=== PATIENT | female | born 1960 | race Caucasian/White ===

== ENCOUNTER 2017-08-16 07:42 | Emergency (ER) | payer OTHER ==
--- NOTE | 2017-08-16 08:07 | PDOC ---
History of Present Illness - General Chief Complaint: Pain, Acute Stated Complaint: CONSTIPATED/PAIN History Source: Patient Exam Limitations: No Limitations - History of Present Illness Initial Comments: 08/16/17 08:11 Pt is a 56 yo F with PMHx of diverticulosis and significant PSHx for cholecystectomy, hemorrhoidectomy, bladder surgery, oophorectomy and hysterectomy, hand surgery post fall, presenting with persistent lower abdominal pain and constipation x 2weeks. Patient describes intermittent cramping 10/10 lower abdominal pain, radiating to back. Worse with ingestion of food, mildly relieved with ibuprofen. Pt has attempted to pass stools up to 4 -5 times this am, but it is hard and painful. No current hx of blood or mucus in stool, but pt noted one episode of bloody stool 2 weeks ago, for which she has been on metronidazole, prescribed by Dr Pandya. She stopped taking the metronidazole for lack of improvement about 2 days ago. The patient has had chronic constipation, with the abdominal pain for about a month. No change in diet, no hx of similar symptoms, no hx of sick contacts and no recent travel. Patient has had colonoscopy in the past. and follows Dr Pandya. Her primary Doctor is on [facility], 08/16/17 10:24 Timing/Duration: unsure Severity: mild Associated Symptoms: reports: nausea/vomiting (nausea but no vomiting). denies : chest pain, cough, diaphoresis, fever/chills, loss of appetite Past History - Travel Traveled outside of the country in the last 30 days: No Close contact w/someone who was outside of country & ill: No - Past Medical History Allergies/Adverse Reactions: Allergies Allergy/AdvReac Type Severity Reaction Status Date / Time No Known Allergies Allergy Verified 08/16/17 08:03 Home Medications: Ambulatory Orders Levofloxacin [Levaquin] 500 mg PO DAILY #9 tablet 08/16/17 Metronidazole 500 mg PO TID 10 Days #29 tablet 08/16/17 Naproxen 500 mg PO BID #5 tablet 08/16/17 metroNIDAZOLE [Flagyl -] 250 mg PO ASDIR 08/16/17 - Surgical History Abdominal Surgery: Yes (hysterectomy, oophorectomy, bladder surgery for prolapse ) Cholecystectomy: Yes Other Surgical History: 08/16/17 08:52 Hand surgery - Reproductive History LMP comment: s/p hysterectomy and oophorectomy Review of Systems - Review of Systems Able to Perform ROS?: Yes (Use [id number]) Is the patient limited Maltese proficient: Yes Constitutional: No: Chills, Diaphoresis, Fever, Loss of Appetite HEENTM: No: Nose Congestion, Throat Pain Respiratory: No: Cough, Orthopnea, Shortness of Breath, Stridor, Wheezing Cardiac (ROS): No: Chest Pain, Edema, Palpitations ABD/GI: Yes: Abd. Pain w/ defecation, Blood Streaked Bowels (One episode 2 weeks ago), Nausea, Abdominal cramping. No: Abdominal Distended, Poor Appetite , Poor Fluid Intake, Vomiting : Yes: Dysuria. No: Burning, Discharge, Hematuria, Incontinence, Urgency Musculoskeletal: No: Back Pain, Muscle Weakness Neurological: Yes: Dizziness. No: Headache, Numbness Hematologic/Lymphatic: No: Anemia, Blood Clots *Physical Exam - Physical Exam General Appearance: Yes: Mild Distress HEENT: positive: EOMI. negative: Scleral Icterus (L), Nasal Congestion Neck: positive: Supple. negative: Tender Respiratory/Chest: positive: Lungs Clear, Normal Breath Sounds. negative: Respiratory Distress, Labored Respiration Cardiovascular: positive: Regular Rate, S1, S2. negative: Edema Gastrointestinal/Abdominal: positive: Normal Bowel Sounds, Soft, Tenderness ( Suprapubic tenderness) Rectal Exam: positive: other (Good anal hygiene, no obvious stool or blood around the anal orifice. Tender anal orifice with mildly engorged perianal vessels, non bleeding. Scanty soft stool billy nal vault. Gloved finger with scant non mucoid, non bloody brown stool.) Musculoskeletal: negative: CVA Tenderness Extremity: positive: Normal Inspection Integumentary: positive: Dry, Warm Neurologic: positive: Fully Oriented, Alert, Motor Strength 5/5. negative: Facial Droop, Confused, Disoriented ED Treatment Course - LABORATORY CBC & Chemistry Diagram: 08/16/17 09:10 08/16/17 09:10 Medical Decision Making - Medical Decision Making 08/16/17 09:00 Chronic constipation and abdominal pain- hx of diverticulosis and hemorrhoids, digital rectal exam done and occult blood CBC, CMP, Lipase UA, Urine culture 08/16/17 10:[address] abdomen pelvis with PO and Iv contrast to R/o colitis 08/16/17 12:14 Pt noted to have allergy to iv contrast. Will do CT abd /pelvis without iv contrast Labs wnl 08/16/17 13:07 CT abd/pelvis- diffuse diverticulosis coli mainly in the sigmoid colon with thickening of the mid sigmoid wall that may be chronic. Mild stranding of surrounding fat suspicious for sumperimposed mild acute diverticulitis. No extravasation or abscess formation is identified. Clinically correlate. Plan: Will discharge home on Po levaquin 500mg daily x 10 days PO metronidazole 500mg tid x 10 days Naproxen 500mg PO bid x 5 days To follow up with Dr Pandya *DC/Admit/Observation/Transfer Diagnosis at time of Disposition: Diverticulitis, Diverticulitis large intestine - Discharge Dispostion Disposition: HOME Condition at time of disposition: Stable Admit: No - Prescriptions Prescriptions: Levofloxacin [Levaquin] 500 mg PO DAILY #9 tablet Metronidazole 500 mg PO TID 10 Days #29 tablet Naproxen 500 mg PO BID #5 tablet - Referrals Referrals: Sanchez Romero [Primary Care Provider] - 1 week Mitch Pandya MD [Staff Physician] - 1 week - Patient Instructions Printed Discharge Instructions: DI for Diverticulitis Additional Instructions: You were seen here for abdominal pain and constipation CT scan of your abdomen showed infection of your sigmoid colon (diverticulitis) We are giving you antibiotic-Levaquin 500mg to take everyday by mouth and metronidazole 500mg three times a day by mouth for ten days We are also giving you naproxen 500mg to take twice daily by mouth Please follow up with your primary physician n one week and with Dr Pandya, your GI doctor in one week If you feel your symptoms are getting worse, with worsening constipation, vomting and fever, please return to the emergency room - Post Discharge Activity - Attestations Physician Attestion: 08/16/17 13:17 Deb Lyaton MD
[2017-08-16 08:08] VITALS: TEMP 98.4; BMI 27.9
[2017-08-16] MEDS ORDERED: KETOROLAC TROMETHAMINE 15 MG/ML VIAL ONE (09:22)
[2017-08-16] MEDS: KETOROLAC TROMETHAMINE 15 MG/ML VIAL IVPUSH ONE ×2 (09:22→09:41)
[2017-08-16 09:26] LABS: BASO % 0.9 % (0-2.0); EOS % 3.8 % (0-4.5); LYMPH % 18.3 % (8-40); MCH 30.8 pg (25.7-33.7); MCHC 34.9 g/dl (32.0-36.0); MEAN CELL VOLUME 88.4 fl (80-96); MEAN PLT VOLUME 8.3 fl (7.5-11.1); MONO % 5.9 % (3.8-10.2); NEUT % 71.1 % (42.8-82.8); PLATELET COUNT 310 K/MM3 (134-434); RBC 4.53 M/mm3 (3.60-5.2); RDW 13.8 % (11.6-15.6); WHITE BLOOD COUNT 5.8 K/mm3 (4.0-10.0)
[2017-08-16] MEDS ORDERED: ACETAMINOPHEN INJECTION 100 ML IVPB ONE (09:29)
[2017-08-16] MEDS ORDERED: ACETAMINOPHEN 1000 MG/100 ML VIAL (NON FORMULARY) IVPB ONE (09:32)
[2017-08-16 09:56] LABS: ALBUMIN 3.9 g/dl (3.4-5.0); ANION GAP 3 (8-16); BILIRUBIN,TOTAL 0.3 mg/dL (0.2-1.0); BLOOD UREA NITROGEN 14 mg/dL (7-18); CALCIUM 8.6 mg/dL (8.5-10.1); CHLORIDE 108 mmol/L (98-107); CO2 27 mmol/L (21-32); CREATININE 0.7 mg/dL (0.55-1.02); GLUCOSE,RANDOM 121 mg/dL (74-106); POTASSIUM 4.4 mmol/L (3.5-5.1); SGOT/AST 33 U/L (15-37); SGPT/ALT 50 U/L (12-78); SODIUM 138 mmol/L (136-145); TOT PROT 7.6 g/dl (6.4-8.2)
[2017-08-16 09:57] LABS: ALK PHOS 77 U/L (45-117)
--- NOTE | 2017-08-16 10:06 | PDOC ---
Attending Attestation - Resident Resident Name: Deb Layton I - ED Attending Attestation I have performed the following: I have examined & evaluated the patient, The case was reviewed & discussed with the resident, I agree w/resident's findings & plan, Exceptions are as noted - HPI HPI: 08/16/17 10:05 56-year-old female with history of diverticulosis, cholecystectomy, hemorrhoid ectomy, bladder surgery, nephrectomy, hysterectomy presents with lower abdominal pain and lower abdominal discomfort. Patient has been reporting discomfort for one month that was intermittent and now is more persistent the last 2 weeks. She reports that she has been more constipated. She reports that she's been straining and having difficulty moving her bowels. She feels occasionally nauseous but denies vomiting or fevers. She reports that her abdomen feels somewhat more distended. The patient was seen by GI physician Dr. Pandya on August 06 for small amounts of blood and stool was given a prescription for Flagyl. She had stopped 2 days ago because she noted that the symptoms were not improving. Has been endorsing some mild dysuria but came to the ER for further evaluation. - Physicial Exam PE: 08/16/17 10:06 GENERAL: Awake, alert, and fully oriented, in no acute distress. HEAD: No signs of trauma EYES: PERRLA, EOMI, sclera anicteric, conjunctiva clear ENT: Auricles normal inspection, hearing grossly normal, nares patent NECK: Normal ROM, supple, no lymphadenopathy, JVD, or masses LUNGS: Breath sounds equal, No wheezes, and no crackles HEART: Regular rate and rhythm, normal S1 and S2, no murmurs, rubs or gallops ABDOMEN: Soft. TTP suprapubic, LLQ. No guarding, no rebound. No masses EXTREMITIES: Normal range of motion, no edema. No clubbing or cyanosis. No cords, erythema, or tenderness NEUROLOGICAL: Cranial nerves II through XII grossly intact. Normal speech, normal gait SKIN: Warm, Dry, normal turgor, no rashes or lesions noted. - Medical Decision Making 08/16/17 10:06 Vital Signs Temp Pulse Resp BP Pulse Ox 98.4 F 92 H 17 109/75 98 08/16/17 08:04 08/16/17 08:04 08/16/17 08:04 08/16/17 08:04 08/16/17 08:04 This could very well just be constipation. Patient does have a history of diverticulosis but we'll need to rule out diverticulitis. We'll need to rule out cystitis. Blood work, urine analysis, CAT scan abdomen pelvis. We'll also rule out bowel obstruction. 08/16/17 12:52 CBC, BMP 08/16/17 09:10 08/16/17 09:10 CMP Sodium 138 mmol/L (136-145) 08/16/17 09:10 Potassium 4.4 mmol/L (3.5-5.1) 08/16/17 09:10 Chloride 108 mmol/L (98-107) H 08/16/17 09:10 Carbon Dioxide 27 mmol/L (21-32) 08/16/17 09:10 Anion Gap 3 (8-16) L 08/16/17 09:10 BUN 14 mg/dL (7-18) 08/16/17 09:10 Creatinine 0.7 mg/dL (0.55-1.02) 08/16/17 09:10 Creat Clearance w eGFR > 60 (>60) 08/16/17 09:10 Random Glucose 121 mg/dL (74-106) H 08/16/17 09:10 Calcium 8.6 mg/dL (8.5-10.1) 08/16/17 09:10 Total Bilirubin 0.3 mg/dL (0.2-1.0) 08/16/17 09:10 AST 33 U/L (15-37) 08/16/17 09:10 ALT 50 U/L (12-78) 08/16/17 09:10 Alkaline Phosphatase 77 U/L (45-117) 08/16/17 09:10 Total Protein 7.6 g/dl (6.4-8.2) 08/16/17 09:10 Albumin 3.9 g/dl (3.4-5.0) 08/16/17 09:10 Lipase 140 U/L (73-393) 08/16/17 09:10 Urine Test Results Urine Color Ltyellow 08/16/17 09:21 Urine Appearance Clear 08/16/17 09:21 Urine pH 6.0 (5.0-8.0) 08/16/17 09:21 Ur Specific Mears 1.014 (1.001-1.035) 08/16/17 09:21 Urine Protein Negative (NEGATIVE) 08/16/17 09:21 Urine Glucose (UA) Negative (NEGATIVE) 08/16/17 09:21 Urine Ketones Negative (NEGATIVE) 08/16/17 09:21 Urine Blood Negative (NEGATIVE) 08/16/17 09:21 Urine Nitrite Negative (NEGATIVE) 08/16/17 09:21 Urine Bilirubin Negative (<2.0 mg/dL) 08/16/17 09:21 Ur Leukocyte Esterase Negative (NEGATIVE) 08/16/17 09:21 CT abdomen and pelvis reviewed. Acute diverticulitis. WBC unremarkable. Pt comfortable. pt is a candidate for outpatient management. PO fluoroquinoloe and PO flagyl and follow up with Dr. pandya
[2017-08-16 11:00] LABS: URINE APPEARANCE CLEAR; URINE BILIRUBIN NEGATIVE (<2.0 mg/dL); URINE BLOOD NEGATIVE (NEGATIVE); URINE COLOR LTYELLOW; URINE GLUCOSE (UA) NEGATIVE (NEGATIVE); URINE KETONE NEGATIVE (NEGATIVE); URINE LEUK ESTERASE NEGATIVE (NEGATIVE); URINE NITRITE NEGATIVE (NEGATIVE); URINE PROTEIN NEGATIVE (NEGATIVE); URINE UROBILINOGEN NEGATIVE mg/dL (0.2-1.0)
[2017-08-16] MEDS ORDERED: CIPROFLOXACIN 500 MG TABLET (RESTRICTED TO ID) PO ONE (12:51)
[2017-08-16] MEDS ORDERED: metroNIDAZOLE 500 MG TABLET PO ONE (12:51)
[2017-08-16] MEDS ORDERED: NAPROXEN 500 MG TABLET (FP) PO ONE (12:52)
[2017-08-16] MEDS ORDERED: metroNIDAZOLE 250 MG TABLET ONE (12:56)
[2017-08-16] MEDS ORDERED: NAPROXEN 500 MG TABLET (FP) ONE (12:56)
[2017-08-16] MEDS ORDERED: levoFLOXacin 750 MG TABLET PO SCH (13:00)
[2017-08-16] MEDS ORDERED: levoFLOXacin 750 MG TABLET PO ONE (13:04)
[2017-08-16 13:35] VITALS: BP 109/60; PULSE 63
== END 2017-08-16 13:35 | disposition home or self-care (01) ==
LOC: JER 07:42
PROC: 3E033NZ Introduction of Analgesics, Hypnotics, Sedatives into Peripheral Vein, Percutaneous Approach (ICD-10-PCS; principal; 2017-08-16)
DX: K57.32 Diverticulitis of large intestine without perforation or abscess without bleeding (principal); Z90.49 Acquired absence of other specified parts of digestive tract; Z90.710 Acquired absence of both cervix and uterus; Z90.721 Acquired absence of ovaries, unilateral
CPT/HCPCS: 36415; 74176-TC; 80053; 81003; 82272; 83690; 85025; 87086; 96374; 99283-25; J0131

== ENCOUNTER 2017-10-14 13:47 | Day surgery (SDC) | payer OTHER ==
[2017-10-14] MEDS ORDERED: PROPOFOL 20 ML ONE ×3 (14:28)
[2017-10-14 14:36] VITALS: BMI 28.9
[2017-10-14 15:06] VITALS: TEMP 97.8
[2017-10-14 15:55] VITALS: BP 118/66; PULSE 64
--- NOTE | 2017-10-16 17:28 | PATH ---
Surgical Pathology Report Patient Name: ELE QUICK [facility]. Rec. #: [id number] /Age/Gender: 1960 (Age: 56) / F Account: [id number] Location: U-ENDOSCOPY Taken: 10/14/2017 Received: 10/15/2017 Reported: 10/16/2017 Physicians: Mitch Pandya M.D. Specimen(s) Received A: BX DUODENUM B: BX BODY Clinical History Epigastric pain Postoperative diagnosis: Gastritis Final Diagnosis A. DUODENUM, BIOPSY: DUODENAL MUCOSA WITH MILD CHRONIC DUODENITIS. B. BODY, BIOPSY: GASTRIC MUCOSA WITH MILD CHRONIC INFLAMMATION. IMMUNOSTAIN IS NEGATIVE FOR H. PYLORI ORGANISMS. Electronically Signed Sherif Dominguez M.D. Gross Description A. Received in formalin, labeled "duodenum" is a palm, irregular portion of soft tissue measuring 0.4 cm. in greatest dimension. The specimen is submitted in toto in one cassette. B. Received in formalin, labeled "body" are 2 palm, irregular portions of soft tissue averaging 0.4 cm. in greatest dimension. The specimens are submitted in toto in one cassette. /10/15/2017 saudi10/15/2017
== END 2017-10-14 16:47 | disposition home or self-care (01) ==
LOC: JASU-ENDO 13:47
PROVIDERS: ATTEND Internal Medicine Gastroenterology
PROC: 0DB68ZX Excision of Stomach, Via Natural or Artificial Opening Endoscopic, Diagnostic (ICD-10-PCS; principal; 2017-10-14 14:45)
DX: R10.13 Epigastric pain (principal)

== ENCOUNTER 2020-09-26 14:24 | Emergency (ER) | payer OTHER ==
[2020-09-26 14:40] VITALS: TEMP 98.1; BMI 58.6
[2020-09-26] MEDS ORDERED: ONDANSETRON 4 MG/2 ML VIAL IVPUSH ONE ×2 (15:08→19:09)
[2020-09-26] MEDS ORDERED: SODIUM CHLORIDE 0.9% 500 ML INFUS.BAG IV ONE (15:08)
[2020-09-26] MEDS ORDERED: PANTOPRAZOLE SODIUM 40 MG VIAL IVPUSH ONE (15:09)
[2020-09-26] MEDS ORDERED: MAG HYDROX/AL HYDROX/SIMETH 30 ML UNIT-DOSE CUP PO ONE (15:09)
[2020-09-26] MEDS ORDERED: ACETAMINOPHEN 1000 MG/100 ML VIAL (NON FORMULARY) IVPB ONE (15:09)
[2020-09-26] MEDS ORDERED: ACETAMINOPHEN INJECTION 100 ML IVPB ONE (15:20)
[2020-09-26] MEDS ORDERED: ONDANSETRON 4 MG/2 ML VIAL ONE ×2 (15:20→19:29)
[2020-09-26] MEDS ORDERED: MAG HYDROX/AL HYDROX/SIMETH 30 ML UNIT-DOSE CUP ONE (15:20)
[2020-09-26] MEDS ORDERED: PANTOPRAZOLE SODIUM 40 MG VIAL ONE (15:21)
[2020-09-26 15:47] LABS: BASO % 0.3 % (0-2.0); EOS % 2.1 % (0-4.5); HEMATOCRIT 44.5 % (32.4-45.2); HEMOGLOBIN 15.1 GM/dL (10.7-15.3); LYMPH % 3.5 % (8-40); MCH 30.3 pg (25.7-33.7); MEAN CELL VOLUME 89.1 fl (80-96); MEAN PLT VOLUME 8.9 fl (7.5-11.1); NEUT % 90.1 % (42.8-82.8); PLATELET COUNT 289 K/MM3 (134-434); RBC 4.99 M/mm3 (3.60-5.2); RDW 13.7 % (11.6-15.6); WHITE BLOOD COUNT 11.6 K/mm3 (4.0-10.0)
[2020-09-26 16:14] LABS: ALBUMIN 4.4 g/dl (3.4-5.0); BILIRUBIN,TOTAL 0.6 mg/dL (0.2-1); BLOOD UREA NITROGEN 24.4 mg/dL (7-18); CALCIUM 9.1 mg/dL (8.5-10.1)
[2020-09-26 18:15] LABS: EPI CELLS 26 /uL (0-25.1); HYALINE CASTS 4 /uL (0-3.1); PH,URINE 5.5 (5.0-8.0); URINE APPEARANCE CLEAR; URINE BACTERIA 106 /uL (0-1359); URINE BILIRUBIN NEGATIVE (NEGATIVE); URINE COLOR YELLOW; URINE GLUCOSE (UA) NEGATIVE (NEGATIVE); URINE KETONE TRACE (NEGATIVE); URINE LEUK ESTERASE 1+ (NEGATIVE); URINE NITRITE NEGATIVE (NEGATIVE); URINE PROTEIN NEGATIVE (NEGATIVE); URINE RBC 15 /uL (0-23.9); URINE UROBILINOGEN 0.2 mg/dL (0.2-1.0); URINE WBC 51 /uL (0-25.8)
[2020-09-26] MEDS ORDERED: morphine CARPU-JECT 2 MG/1 ML DISP.SYRIN IVPUSH ONE (19:10)
[2020-09-26] MEDS ORDERED: KETOROLAC TROMETHAMINE 60 MG/2 ML VIAL IVPUSH ONE (20:02)
[2020-09-26 20:04] VITALS: BP 100/68; PULSE 77
[2020-09-26] MEDS ORDERED: CIPROFLOXACIN 500 MG TABLET (RESTRICTED TO ID) PO ONE (20:06)
[2020-09-26] MEDS ORDERED: metroNIDAZOLE 250 MG TABLET PO ONE (20:06)
[2020-09-26] MEDS ORDERED: KETOROLAC TROMETHAMINE 15 MG/ML VIAL ONE (20:22)
[2020-09-26] MEDS ORDERED: metroNIDAZOLE 250 MG TABLET ONE (20:25)
== END 2020-09-26 20:25 | disposition home or self-care (01) ==
LOC: JER 14:24
PROC: 3E0333Z Introduction of Anti-inflammatory into Peripheral Vein, Percutaneous Approach (ICD-10-PCS; principal; 2020-09-26)
PROC: 3E0333Z Introduction of Anti-inflammatory into Peripheral Vein, Percutaneous Approach (ICD-10-PCS; 2020-09-26)
PROC: 3E033GC Introduction of Other Therapeutic Substance into Peripheral Vein, Percutaneous Approach (ICD-10-PCS; 2020-09-26)
PROC: 3E033GC Introduction of Other Therapeutic Substance into Peripheral Vein, Percutaneous Approach (ICD-10-PCS; 2020-09-26)
PROC: 3E033GC Introduction of Other Therapeutic Substance into Peripheral Vein, Percutaneous Approach (ICD-10-PCS; 2020-09-26)
DX: R10.84 Generalized abdominal pain (principal); K51.919 Ulcerative colitis, unspecified with unspecified complications
CPT/HCPCS: 36415; 74176-TC; 80053; 81003; 83690; 85025; 99285-25; J0131

== ENCOUNTER 2021-10-22 17:07 | Emergency (ER) | payer OTHER ==
[2021-10-22 17:46] VITALS: BP 122/77; PULSE 85; TEMP 98.6
[2021-10-22] MEDS ORDERED: SODIUM CHLORIDE 1,000 ML IV STA (21:06)
[2021-10-22 21:41] LABS: EOS % 7.2 % (0-4.5); HEMATOCRIT 41.4 % (32.4-45.2); HEMOGLOBIN 13.8 GM/dL (10.7-15.3); LYMPH % 30.2 % (8-40); MCH 29.3 pg (25.7-33.7); MCHC 33.4 g/dl (32.0-36.0); MEAN CELL VOLUME 87.7 fl (80-96); MEAN PLT VOLUME 8.1 fl (7.5-11.1); MONO % 7.7 % (3.8-10.2); NEUT % 53.9 % (42.8-82.8); PLATELET COUNT 331 10^3/uL (134-434); RBC 4.72 M/mm3 (3.60-5.2); RDW 13.8 % (11.6-15.6)
[2021-10-22 22:07] LABS: CALCIUM 9.4 mg/dL (8.5-10.1)
[2021-10-22 22:08] LABS: ALBUMIN 3.7 g/dl (3.4-5.0); BLOOD UREA NITROGEN 24.2 mg/dL (7-18)
[2021-10-22 22:11] LABS: CREATININE 0.7 mg/dL (0.55-1.3)
[2021-10-22 22:12] LABS: TOT PROT 7.7 g/dl (6.4-8.2)
[2021-10-22 22:26] LABS: BILIRUBIN,TOTAL 0.3 mg/dL (0.2-1)
[2021-10-22] MEDS ORDERED: methylPREDNISolone NA SUCC 125 MG/2 ML VIAL IVPUSH ONE (23:07)
[2021-10-22] MEDS ORDERED: SODIUM CHLORIDE 0.9% 500 ML INFUS.BAG IV ONE (23:18)
[2021-10-23] MEDS ORDERED: methylPREDNISolone NA SUCC 125 MG/2 ML VIAL ONE (00:09)
[2021-10-23 09:59] LABS: EPI CELLS >36 /uL (0-25.1); HYALINE CASTS 1 /uL (0-3.1); PH,URINE 5.5 (5.0-8.0); URINE APPEARANCE CLOUDY; URINE BACTERIA >9,000 /uL (0-1359); URINE BILIRUBIN NEGATIVE (NEGATIVE); URINE COLOR YELLOW; URINE GLUCOSE (UA) NEGATIVE (NEGATIVE); URINE KETONE NEGATIVE (NEGATIVE); URINE LEUK ESTERASE TRACE (NEGATIVE); URINE NITRITE NEGATIVE (NEGATIVE); URINE PROTEIN NEGATIVE (NEGATIVE); URINE RBC 9 /uL (0-23.9); URINE UROBILINOGEN 0.2 mg/dL (0.2-1.0); URINE WBC 21 /uL (0-25.8)
== END 2021-10-23 02:18 | disposition home or self-care (01) ==
LOC: JER 17:07
PROC: 3E0337Z Introduction of Electrolytic and Water Balance Substance into Peripheral Vein, Percutaneous Approach (ICD-10-PCS; principal; 2021-10-22)
DX: R10.33 Periumbilical pain (principal)
CPT/HCPCS: 36415; 74176-TC; 80053; 81003; 83690; 85025; 99284-25

== ENCOUNTER 2024-01-06 07:06 | Emergency (ER) | payer OTHER ==
[2024-01-06 07:23] VITALS: BP 123/84; PULSE 76; RESP 18; TEMP 98.4; BMI 31.4
[2024-01-06 08:12] LABS: EPI CELLS >36 /uL (0-25.1); HYALINE CASTS 0 /uL (0-3.1); URINE APPEARANCE CLEAR; URINE BACTERIA 182 /uL (0-1359); URINE BILIRUBIN NEGATIVE (NEGATIVE); URINE COLOR YELLOW; URINE GLUCOSE (UA) NEGATIVE (NEGATIVE); URINE KETONE NEGATIVE (NEGATIVE); URINE LEUK ESTERASE 2+ (NEGATIVE); URINE NITRITE NEGATIVE (NEGATIVE); URINE PROTEIN NEGATIVE (NEGATIVE); URINE RBC 39 /uL (0-23.9); URINE UROBILINOGEN 0.2 mg/dL (0.2-1.0); URINE WBC 50 /uL (0-25.8)
== END 2024-01-06 09:41 | disposition home or self-care (01) ==
LOC: JER 07:06
DX: N76.0 Acute vaginitis (principal); B96.89 Other specified bacterial agents as the cause of diseases classified elsewhere; L29.2 Pruritus vulvae; N89.8 Other specified noninflammatory disorders of vagina
CPT/HCPCS: 36415; 81003; 87086; 87186; 87491; 87591; 87661; 99283-25